=== PATIENT | male | born 1995 | race African-American/Black ===

== ENCOUNTER 2018-08-21 07:46 | Emergency (ER) | payer MEDICAID ==
[~2018-08-21] VITALS: Ht 193 cm; Wt 81.2 kg
[2018-08-21 07:49] VITALS: BP 134/77; Ht 193 cm; Wt 81.2 kg
== END 2018-08-21 11:12 | disposition home or self-care (01) ==
LOC: ED 07:46
DX: S83.91XA Sprain of unspecified site of right knee, initial encounter (principal); M25.461 Effusion, right knee; Z88.1 Allergy status to other antibiotic agents; X50.1XXA Overexertion from prolonged static or awkward postures, initial encounter; Y93.67 Activity, basketball; Y92.310 Basketball court as the place of occurrence of the external cause; Y99.8 Other external cause status
CPT/HCPCS: Q0092